=== PATIENT | female | born 1990 | race Caucasian/White ===

== ENCOUNTER 2016-03-28 12:11 | Emergency (ER) | payer OTHER ==
[2016-03-28 12:50] VITALS: BP 111/72
--- NOTE | 2016-03-28 12:51 | UC ---
Elbow Pain - HPI Summary HPI Summary: RIGHT ELBOW PAIN X 4 DAYS HIT HER RIGHT ELBOW TO THE WALL 4 DAYS AGO CONT. TO HAVE PAIN , INCREASE PAIN WITH MOVEMENT OF HER RIGHT ARM AND LIFTING WITH HER RIGHT ARM - History of Current Complaint Chief Complaint: UCUpperExtremity Stated Complaint: RIGHT ELBOW PAIN Time Seen by Provider: 03/28/16 12:40 Hx Obtained From: Patient Hx Last Menstrual Period: 03/19/16 ?: No Mechanism of Injury: HIT THE WALL WITH HER RIGHT ELBOW Onset/Duration: Days - 4, Traumatic, Still Present Severity Initially: Moderate Severity Currently: Moderate Location Of Pain: Is Discrete @ - RIGHT ELBOW Character: Aching Aggravating Factor(s): Movement, Pulling, Twisting Alleviating Factor(s): Rest, Ice Associated Signs And Symptoms: Positive: Weakness. Negative: Swelling, Redness , Bruising, Numbness/Tingling - Allergies/Home Medications Allergies/Adverse Reactions: Allergies Allergy/AdvReac Type Severity Reaction Status Date / Time Amoxicillin Allergy Intermediate Hives Verified 03/28/16 12:41 Nickel Allergy Rash Verified 01/10/16 15:34 PMH/Surg Hx/FS Hx/Imm Hx Endocrine History Of: Denies: Diabetes, Thyroid Disease, Hyperthyroidism, Hypothyroidism, Dyslipidemia Cardiovascular History Of: Denies: Cardiac Disorders, Hypertension, Pacemaker/ICD, Myocardial Infarction , Congestive Heart Failure, Atrial Fibrillation, Deep Vein Thrombosis, Bleeding Disorders Respiratory History Of: Denies: COPD, Asthma, Bronchitis, Pneumonia, Pulmonary Embolism GI/ History Of: Denies: Gastroesophageal Reflux, Ulcer, Gastrointestinal Bleed, Gall Bladder Disease, Kidney Stones, Diverticulitis, Renal Disease, Urosepsis Neurological History Of: Denies: TIA, CVA, Dementia, Seizures, Migraine Psychological History Of: Denies: Anxiety, Depression, Bipolar Disorder, Schizophrenia, Post Traumatic Stress Disorder Cancer History Of: Denies: Lung Cancer, Colorectal Cancer, Breast Cancer, Prostate Cancer, Cervical Cancer Other History Of: Negative For: HIV, Hepatitis B, Hepatitis C, Anticoagulant Therapy - Surgical History Surgical History: None - Family History Known Family History: Positive: Cardiac Disease Negative: Hypertension, Diabetes, Respiratory Disease - Social History Alcohol Use: Occasionally Substance Use Type: None Smoking Status (MU): Heavy Every Day Tobacco Smoker Type: Cigarettes Amount Used/How Often: 1/2 pack day Length of Time of Smoking/Using Tobacco: since age 15 Have You Smoked in the Last Year: Yes Review of Systems Constitutional: Negative Skin: Negative Eyes: Negative ENT: Negative Respiratory: Negative Cardiovascular: Negative Musculoskeletal: Other: - RIGHT ELBOW PAIN Psychological: Negative All Other Systems Reviewed And Are Negative: Yes Physical Exam Triage Information Reviewed: Yes Appearance: Well-Appearing, No Pain Distress, Well-Nourished Vital Signs: Initial Vital Signs Temp 98.1 F 03/28/16 12:35 Pulse 86 03/28/16 12:35 Resp 14 03/28/16 12:35 BP 111/72 03/28/16 12:35 Pulse Ox 99 03/28/16 12:35 Vital Signs Reviewed: Yes Eyes: Positive: Conjunctiva Clear ENT: Positive: Normal ENT inspection, Hearing grossly normal, Pharynx normal Neck: Positive: Supple, Nontender, No Lymphadenopathy Respiratory: Positive: Chest non-tender, Lungs clear, Normal breath sounds Cardiovascular: Positive: RRR, No Murmur, Pulses Normal Abdominal Exam: Normal Musculoskeletal: Positive: Other: - RIGHT ELBOW: NO SWELLING , NO ECCHYMOSIS, NO EFFUSION, + DIFFUSE TENDERNESS, GOOD ROM ON FLEXION, EXTENSION , Skin Exam: Normal Elbow Pain Course/Dx - Differential Dx/Diagnosis Provider Diagnoses: CONTUSION RIGHT ELBOW Discharge - Discharge Plan Condition: Stable Disposition: HOME Patient Education Materials: Contusion in Adults (ED) Forms: *Work Release Referrals: [facility] [Outside] - 7 Days No Primary Care Phys,NOPCP [Primary Care Provider] - 7 Days
--- NOTE | 2016-03-28 13:06 | RAD ---
INDICATION: Elbow injury COMPARISON: None TECHNIQUE: AP, lateral, and oblique views were obtained. FINDINGS: The bony structures, joint spaces, and soft tissues are normal for age. IMPRESSION: NEGATIVE EXAMINATION.
== END 2016-03-28 13:11 | disposition home or self-care (01) ==
LOC: UCCORT 12:11
DX: S50.01XA Contusion of right elbow, initial encounter (principal); W22.09XA Striking against other stationary object, initial encounter; Y93.9 Activity, unspecified; Y92.9 Unspecified place or not applicable; Z88.0 Allergy status to penicillin; F17.210 Nicotine dependence, cigarettes, uncomplicated
CPT/HCPCS: 99211; G0463

== ENCOUNTER 2017-04-22 09:05 | Emergency (ER) | payer OTHER ==
[2017-04-22 10:36] VITALS: BP 113/73
[2017-04-22] MEDS ORDERED: Ketorolac INJ* 30 MG/ML 1 ML VIAL IM ONE (10:45)
--- NOTE | 2017-04-22 10:53 | UC ---
Headache HPI - HPI Summary HPI Summary: 26 yo female with left hemicranial BANDA x 3 days she gets similar HAs about once a month tentative dx of migraines often her BANDA are associated with n/v although this one is not she has photo/phono phobia no hx head injury - History Of Current Complaint Chief Complaint: UCHeadache Stated Complaint: HEADACHE Time Seen by Provider: 04/22/17 10:33 Hx Obtained From: Patient Hx Last Menstrual Period: unknown, takes only active bc pills Onset/Duration: Gradual Onset, Lasting Days Onset Of Symptoms: Gradual Initially Headache Was: Moderate Currently Pain Is: Severe Pain Intensity: 8 Pain Scale Used: 0-10 Numeric Timing: Constant Character: Throbbing, Typical Headache Associated Signs And Symptoms: Positive: Negative - Allergies/Home Medications Allergies/Adverse Reactions: Allergies Allergy/AdvReac Type Severity Reaction Status Date / Time amoxicillin Allergy Hives Verified 04/22/17 10:32 nickel Allergy Rash Verified 04/22/17 10:32 PMH/Surg Hx/FS Hx/Imm Hx Previously Healthy: Yes Other History Of: Negative For: HIV, Hepatitis B, Hepatitis C, Anticoagulant Therapy - Surgical History Surgical History: None - Family History Known Family History: Positive: Cardiac Disease, Hypertension Negative: Diabetes, Respiratory Disease - Social History Alcohol Use: None Substance Use Type: None Smoking Status (MU): Heavy Every Day Tobacco Smoker Type: Cigarettes Amount Used/How Often: 1/2 pack day Length of Time of Smoking/Using Tobacco: since age 15 Have You Smoked in the Last Year: Yes Review of Systems Constitutional: Negative Skin: Negative Eyes: Negative ENT: Negative Respiratory: Negative Cardiovascular: Negative Gastrointestinal: Negative Genitourinary: Negative Motor: Negative Neurovascular: Negative Musculoskeletal: Negative Neurological: Headache Psychological: Negative Is Patient Immunocompromised?: No All Other Systems Reviewed And Are Negative: Yes Physical Exam Triage Information Reviewed: Yes Appearance: Well-Appearing, No Pain Distress, Well-Nourished Vital Signs: Initial Vital Signs Temp 98.2 F 04/22/17 10:29 Pulse 69 04/22/17 10:29 Resp 16 04/22/17 10:29 BP 113/73 04/22/17 10:29 Pulse Ox 100 04/22/17 10:29 Vital Signs Reviewed: Yes Eyes: Positive: Conjunctiva Clear, Other: - eomi/perrl, fundi benign ENT: Positive: Hearing grossly normal, TMs normal, Uvula midline, Other - no TMJ crepitus. Negative: Nasal congestion, Nasal drainage, Tonsillar swelling, Tonsillar exudate, Trismus, Muffled voice, Hoarse voice, Sinus tenderness Neck: Positive: Supple, Nontender, No Lymphadenopathy Respiratory: Positive: Lungs clear, Normal breath sounds, No respiratory distress, No accessory muscle use, Respiratory distress Cardiovascular: Positive: RRR, No Murmur Musculoskeletal: Positive: ROM Intact, No Edema Neurological: Positive: Alert, Other: - cn2-12 intact, strenth and sensory intact, DTRs, normal gait Psychological Exam: Normal Skin Exam: Normal Re-Evaluation - Re-Evaluation First Eval Re-Evaluation Time: 11:16 Change: Improved - markedly improved headache 3- Headache Course/Dx - Differential Dx/Diagnosis Provider Diagnoses: acute headache. suspect migraine Discharge - Discharge Plan Condition: Stable Disposition: HOME Patient Education Materials: Acute Headache (ED) Referrals: No Primary Care Phys,NOPCP [Primary Care Provider] - Additional Instructions: you had a shot of TORADOL here rest see your provider this week for recheck
== END 2017-04-22 11:21 | disposition home or self-care (01) ==
LOC: UCCORT 09:05
DX: R51 Headache (principal); Z88.1 Allergy status to other antibiotic agents; F17.210 Nicotine dependence, cigarettes, uncomplicated
CPT/HCPCS: 96372; 99211; G0463; J1885

== ENCOUNTER 2018-01-10 18:24 | Emergency (ER) | payer OTHER ==
[2018-01-10 19:00] VITALS: BP 104/68
--- NOTE | 2018-01-10 19:47 | UC ---
Respiratory Complaint HPI - HPI Summary HPI Summary: Pt c/o chest and nasal congestion, cough X 1 month. - History of Current Complaint Chief Complaint: UCRespiratory Stated Complaint: CONGESTION/COUGH Time Seen by Provider: 01/10/18 18:59 Hx Obtained From: Patient Hx Last Menstrual Period: HAS NOT HAD PERIOD SINCE STOPING THE BCP IN JULY 2017 ?: No Onset/Duration: Gradual Onset, Lasting Weeks, Still Present Timing: Constant Severity Initially: Mild Severity Currently: Mild Pain Intensity: 6 Pain Scale Used: 0-10 Numeric Character: Cough: Nonproductive Aggravating Factors: Exertion, Deep Breaths, Recumbent Position Associated Signs And Symptoms: Positive: URI, Nasal Congestion - Risk Factors Pulmonary Embolism Risk Factors: Negative Cardiac Risk Factors: Negative Pseudomonas Risk Factors: Negative Tuberculosis Risk Factors: Negative - Allergies/Home Medications Allergies/Adverse Reactions: Allergies Allergy/AdvReac Type Severity Reaction Status Date / Time amoxicillin Allergy Hives Verified 01/10/18 18:52 nickel Allergy Rash Verified 01/10/18 18:52 PMH/Surg Hx/FS Hx/Imm Hx Previously Healthy: Yes Other History Of: Negative For: HIV, Hepatitis B, Hepatitis C, Anticoagulant Therapy - Surgical History Surgical History: None - Family History Known Family History: Positive: Cardiac Disease, Hypertension Negative: Diabetes, Respiratory Disease - Social History Occupation: Employed Full-time Lives: With Family Alcohol Use: None Substance Use Type: None Smoking Status (MU): Heavy Every Day Tobacco Smoker Type: Cigarettes Amount Used/How Often: 1/2 pack day Length of Time of Smoking/Using Tobacco: since age 15 Have You Smoked in the Last Year: Yes Review of Systems All Other Systems Reviewed And Are Negative: Yes Constitutional: Positive: Chills, Fatigue Skin: Positive: Negative Eyes: Positive: Negative ENT: Positive: Sinus Congestion Respiratory: Positive: Cough Cardiovascular: Positive: Negative Gastrointestinal: Positive: Negative Genitourinary: Positive: Negative Motor: Positive: Negative Neurovascular: Positive: Negative Musculoskeletal: Positive: Negative Neurological: Positive: Negative Psychological: Positive: Negative Is Patient Immunocompromised?: No Physical Exam Triage Information Reviewed: Yes Appearance: Well-Appearing Vital Signs: Initial Vital Signs Temp 97.8 F 01/10/18 18:53 Pulse 76 01/10/18 18:53 Resp 16 01/10/18 18:53 BP 104/68 01/10/18 18:53 Pulse Ox 98 01/10/18 18:53 Vital Signs Reviewed: Yes Eye Exam: Normal ENT: Positive: Nasal congestion Dental Exam: Normal Neck exam: Normal Respiratory: Positive: Other: - upper airway congestion Cardiovascular Exam: Normal Musculoskeletal Exam: Normal Neurological Exam: Normal Psychological Exam: Normal Skin Exam: Normal UC Diagnostic Evaluation - Laboratory O2 Sat by Pulse Oximetry: 98 Respiratory Course/Dx - Differential Dx/Diagnosis Differential Diagnosis/HQI/PQRI: Bronchitis, Influenza Provider Diagnoses: bronchitis Discharge - Sign-Out/Discharge Documenting (check all that apply): Patient Departure All imaging exams completed and their final reports reviewed: No Studies - Discharge Plan Condition: Stable Disposition: HOME Prescriptions: Azithromycin TAB* [Zithromax TAB (Z-HARVEY) 250 mg #6 tabs] 2 tab PO .TODAY, THEN 1 DAILY #1 harvey Guaifenesin/Pseudoephedrne HCl [Mucinex D ER 600-60 mg Tablet] 1 each PO Q12H # 14 tab.er.12h predniSONE TAB* [Deltasone 20 MG TAB*] 20 mg PO DAILY #4 tab Patient Education Materials: Acute Bronchitis (ED) Forms: *Work Release Referrals: [facility] [Outside] - If Needed Ita Walter MD [Primary Care Provider] - As Soon As Possible - Billing Disposition and Condition Condition: STABLE Disposition: Home - Attestation Statements Provider Attestation: I was available for consult. This patient was seen by the HARI. The patient was not presented to, seen by, or examined by me. -Matheus
== END 2018-01-10 19:38 | disposition home or self-care (01) ==
LOC: UCCORT 18:24
DX: J40 Bronchitis, not specified as acute or chronic (principal); R09.89 Other specified symptoms and signs involving the circulatory and respiratory systems; F17.210 Nicotine dependence, cigarettes, uncomplicated; Z88.0 Allergy status to penicillin; Z91.048 Other nonmedicinal substance allergy status
CPT/HCPCS: 99212; G0463

== ENCOUNTER 2018-02-14 08:00 | Emergency (ER) | payer OTHER ==
[2018-02-14 08:18] VITALS: BP 106/62
--- NOTE | 2018-02-14 08:37 | UC ---
Lower Extremity/Ankle HPI - HPI Summary HPI Summary: Patient presents to urgent care with 24 hours progressive pain in the base of her second and third toe on the left foot. Patient denies any trauma. Patient states pain at rest but it's exquisite with any type of movement or palpation. Patient states gentle palpation to the tips of her toes also causes pain. Patient has taken Motrin as well as Tylenol with little relief. Patient denies fevers or chills. Patient is not immunocompromised. Patient without any history of similar. Patient is denies any new shoes, new activities. Patient states her feet did not get cold and wet and is not concern for frostbite. Patient states she's never been like this before. 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 Patient has a primary but has not seen her in quite some time so decided to come here. Last analgesia was 4 AM. Patient states medications reviewed this visit. - History of Current Complaint Chief Complaint: UCLowerExtremity Stated Complaint: LT FOOT/TOES PAIN Time Seen by Provider: 02/14/18 08:20 Hx Obtained From: Patient Hx Last Menstrual Period: unknown Severity Initially: Moderate Severity Currently: Moderate Pain Intensity: 7 Pain Scale Used: 0-10 Numeric Aggravating Factor(s): Ambulation Alleviating Factor(s): Rest Able to Bear Weight: Yes - with limp - Allergies/Home Medications Allergies/Adverse Reactions: Allergies Allergy/AdvReac Type Severity Reaction Status Date / Time amoxicillin Allergy Hives Verified 02/14/18 08:14 nickel Allergy Rash Verified 02/14/18 08:14 Home Medications: Home Medications Acetaminophen [Acetaminophen Extra Strength] 500 mg PO Q4H PRN 02/14/18 [ History Confirmed 02/14/18] Ibuprofen TAB* [Advil TAB*] 800 mg PO Q6H PRN 02/14/18 [History Confirmed ] PMH/Surg Hx/FS Hx/Imm Hx Previously Healthy: Yes Other History Of: Negative For: HIV, Hepatitis B, Hepatitis C, Anticoagulant Therapy - Surgical History Surgical History: None - Family History Known Family History: Positive: Cardiac Disease, Hypertension Negative: Diabetes, Respiratory Disease - Social History Occupation: Employed Full-time Alcohol Use: None Substance Use Type: None Smoking Status (MU): Heavy Every Day Tobacco Smoker Type: Cigarettes Amount Used/How Often: 1/2 pack day Length of Time of Smoking/Using Tobacco: since age 15 Have You Smoked in the Last Year: Yes Review of Systems All Other Systems Reviewed And Are Negative: Yes Constitutional: Positive: Negative Skin: Positive: Other - no wounds, no erythema. Negative: Bruising Musculoskeletal: Positive: Other: - left toes Physical Exam - Summary Physical Exam Summary: Vital Signs Reviewed: Yes A+Ox3, no distress Eyes: Conjunctiva Clear ENT: Hearing grossly normal neck: supple Respiratory: Positive: No respiratory distress, No accessory muscle use Cardiovascular: skin color reflect adequate perfusion Musculoskeletal Exam: + SLE + flex/ext knee, ankle no pain tarsals + TTP base 2nd, 3rd toes at MTP no crepitus no edema Pain increases with movement. + TTP gentle palpation of both toes - no crepitus, no deformity, no erythema, no edema , no warmth. Neurological: Positive: Alert, ambulatory without difficulty + gross sensation Psychological: Positive: Normal Response To Family Skin: Positive: no rash, no ecchymosis, no erythema, no warmth Triage Information Reviewed: Yes Vital Signs: Initial Vital Signs Temp 98.1 F 02/14/18 08:15 Pulse 80 02/14/18 08:15 Resp 16 02/14/18 08:15 BP 106/62 02/14/18 08:15 Pulse Ox 100 02/14/18 08:15 Diagnostics - Radiology No standard instances Radiology Interpretation Completed By: Radiologist - Patient Name: EFREN CASANOVA Medical Record#: [id number] Ordering Physician: Yaa Knox MD Acct.#: [id number] : 1990 Age: 27 Sex: F Location: [facility] Exam Date: 02/14/18830 ADM Status: REG ER Order Information: FOOT LEFT 2 VWS Accession Number: [id number] CPT: 94722 HISTORY: pain base 2nd/3rd toes unknown trauma COMPARISONS: None VIEWS: 2 , Frontal and lateral views of the left foot FINDINGS: BONE DENSITY: Normal. BONES: There is no displaced fracture. JOINTS: There is no arthropathy. ALIGNMENT: There is no dislocation. SOFT TISSUES: Unremarkable. OTHER FINDINGS: None. IMPRESSION: NO ACUTE OSSEOUS INJURY. IF SYMPTOMS PERSIST, RECOMMEND REPEAT IMAGING. <Electronically signed by Javier Armendariz MD in [place]> 02/14/18852 Dictated By: Javier Armendariz MD Dictated Date/Time: 02/14 Transcribed Date/Time: 02/14/18852 Copy to: CC:MARCELL Pettit ; Yaa Knox MD; No Primary Care Phys,NOPCP Imaging - [facility] Imaging - [facility] Imaging - [facility] [address] [facility] [address] ph ([phone]) ph ([phone]) ph ([phone]) This report is only to be considered final once signed by the Provider(s) as displayed in the "<Electronically Signed by >" field (s). Absence of a signature indicates the report is in a draft status and still needs to be finalized. In the event this document was created by someone other than the signing Provider, the individual initiating the document will be listed in the "Entered by:" or "Dictated by:" more. 1 of 1 Lower Extremity Course/Dx - Course Course Of Treatment: Patient presents to urgent care reporting progressive pain in her left foot at the base of her second and third toes. Patient denies trauma. Patient is worse with palpation walking and putting on her shoe. Patient without any erythema, edema, or swelling. Patient states she's taken Motrin Tylenol with little improvement. On exam patient with tenderness across days to toes at the end as well as MTP. No other clinical signs consistent with gout. We'll check imaging. We'll check a CBC chemistry neck acid. Encourage patient to follow up with sports medicine. Patient given a hard soled shoe and crutches which she sits provided good support. Reviewed Motrin Tylenol. Ice. Elevate. Return precautions. Patient also given contact information patient for primary care provider support. d/w pt diagnostic uncertainly at today's exam - differential includes gout, tendonitis, contusion Patient comfortable in agreement. Strict return precautions. work note - Differential Dx/Diagnosis Provider Diagnosis: Left foot pain Discharge - Sign-Out/Discharge Documenting (check all that apply): Patient Departure All imaging exams completed and their final reports reviewed: Yes - Discharge Plan Condition: Stable Disposition: HOME Patient Education Materials: Arthralgia (ED) Forms: *Work Release Referrals: No Primary Care Phys,NOPCP [Primary Care Provider] - [facility] [Provider Group] [facility] [Provider Group] Additional Instructions: As discussed with you at your visit today, the doctor that evaluated you is not certain the cause of your pain. Your x-ray does not show any abnormalities. You have blood work drawn today that will be available later this afternoon for review. The followig is recommended: - use crutches and he can walk normally without limp - wear the shoe with a stiff support like the one given to at today's visit - Elevate your leg to help with any discomfort related to swelling. - Okay to alternate ibuprofen (Advil, Motrin) 600mg and Tylenol every 3 hours for pain or fever. Take with food. Do NOT take for more than 4-5 days. - Contact the sports medicine group to schedule a follow-up appointment. You may request evaluation in the [facility] - they have office hours on s - Billing Disposition and Condition Condition: STABLE Disposition: Home
[2018-02-14 10:22] LABS: ABS Basophils 0 10^3/ul (0-0.2); ABS Eosinophils 0.1 10^3/ul (0-0.6); ABS Lymphocytes 2.4 10^3/ul (1.0-4.8); ABS Monocytes 0.5 10^3/ul (0-0.8); ABS Neutrophils 3.1 10^3/ul (1.5-7.7); ABS Nucleated RBC 0 10^3/ul; Eosinophil % 1.9 %; Hematocrit 40 % (35-47); Lymphocyte % 39.1 %; Mean Corpuscular HGB Conc 35 g/dl (31-36); Mean Corpuscular Hemoglobin 31 pg (27-31); Mean Corpuscular Volume 89 fL (80-97); Mean Platelet Volume 8.9 fL (7.4-10.4); Nucleated Red Blood Cells % 0.1; Platelet Count 233 10^3/ul (150-450); Red Blood Count 4.51 10^6/ul (4.00-5.40); Red Cell Distribution Width 13 % (10.5-15); White Blood Count 6.2 10^3/ul (3.5-10.8)
[2018-02-14 10:39] LABS: EGFR Non-African American 116.8 (>60); Uric Acid 3.6 mg/dL (2.3-6.6)
== END 2018-02-14 09:10 | disposition home or self-care (01) ==
LOC: UCCORT 08:00
DX: M79.672 Pain in left foot (principal); Z88.0 Allergy status to penicillin; F17.210 Nicotine dependence, cigarettes, uncomplicated
CPT/HCPCS: 36415; 80048; 84550; 85025; 99212; G0463

== ENCOUNTER 2018-07-30 15:59 | Emergency (ER) | payer OTHER ==
[2018-07-30 16:28] VITALS: BP 109/68
[2018-07-30] MEDS ORDERED: Fluorescein Sodium TOPICAL* 1 MG TEST STRIP OPHTHALMIC ONE (16:52)
[2018-07-30] MEDS ORDERED: Tetracaine 0.5% OPTH.SOL 4 ML* 1 DROP BTL LEFT EYE ONE (16:53)
--- NOTE | 2018-07-30 17:09 | ED ---
Throat Pain/Nasal Congestion - HPI Summary HPI Summary: 27 yr old female with the complaint of left eye pain. Onset of pain was this morning when her dog hit her left eye with paw and nail. No contact lense use. Her pain is worse with open and close eye, and pain is burning. Moderate in intensity. 10/12. - History of Current Complaint Chief Complaint: UCEye Time Seen by Provider: 07/30/18 16:45 - Allergies/Home Medications Allergies/Adverse Reactions: Allergies Allergy/AdvReac Type Severity Reaction Status Date / Time amoxicillin Allergy Hives Verified 07/30/18 16:28 nickel Allergy Rash Verified 07/30/18 16:28 PMH/Surg Hx/FS Hx/Imm Hx Endocrine/Hematology History: Denies: Hx Anticoagulant Therapy, Hx Diabetes, Hx Thyroid Disease Cardiovascular History: Denies: Hx Congestive Heart Failure, Hx Deep Vein Thrombosis, Hx Hypertension , Hx Myocardial Infarction, Hx Pacemaker/ICD Respiratory History: Denies: Hx Asthma, Hx Chronic Obstructive Pulmonary Disease (COPD), Hx Lung Cancer, Hx Pneumonia, Hx Pulmonary Embolism GI History: Denies: Hx Gall Bladder Disease, Hx Gastrointestinal Bleed, Hx Ulcer, Hx Urosepsis History: Denies: Hx Kidney Stones, Hx Renal Disease Neurological History: Denies: Hx Dementia, Hx Migraine, Hx Seizures, Hx Transient Ischemic Attacks (TIA) Psychiatric History: Denies: Hx Anxiety, Hx Depression, Hx Schizophrenia, Hx Bipolar Disorder Infectious Disease History: No Infectious Disease History: Denies: Hx Hepatitis, Hx Human Immunodeficiency Virus (HIV), Traveled Outside the [place] in Last 30 Days - Family History Known Family History: Positive: Cardiac Disease, Hypertension Negative: Diabetes, Respiratory Disease - Social History Alcohol Use: None Substance Use Type: Reports: None Smoking Status (MU): Heavy Every Day Tobacco Smoker Type: Cigarettes Amount Used/How Often: 1/2 pack day Length of Time of Smoking/Using Tobacco: since age 15 Have You Smoked in the Last Year: Yes Review of Systems Constitutional: Negative Positive: Other - left eye pain All Other Systems Reviewed And Are Negative: Yes Physical Exam Triage Information Reviewed: Yes Vital Signs On Initial Exam: Initial Vitals Temp Pulse Resp BP Pulse Ox 98.3 F 72 16 109/68 100 07/30/18 16:25 07/30/18 16:25 07/30/18 16:25 07/30/18 16:25 07/30/18 16:25 Vital Signs Reviewed: Yes Appearance: Positive: Well-Appearing, No Pain Distress Skin: Positive: Warm, Skin Color Reflects Adequate Perfusion Head/Face: Positive: Normal Head/Face Inspection Eyes: Positive: EOMI, KAIT, Other: - left eye with erythema conjunctiva, and under wood lamp exam no uptake seen. Slit lamp not available. ENT: Positive: Normal ENT inspection Neck: Positive: Nontender Respiratory/Lung Sounds: Positive: Clear to Auscultation Cardiovascular: Positive: RRR Abdomen Description: Negative: Distended Musculoskeletal: Positive: Strength/ROM Intact Neurological: Positive: Sensory/Motor Intact, Alert, Oriented to Person Place, Time, CN Intact II-III, Normal Gait, Speech Normal Psychiatric: Positive: Normal Diagnostics - Vital Signs Vital Signs Temp Pulse Resp BP Pulse Ox 07/30/18 16:25 98.3 F 72 16 109/68 100 - Laboratory Lab Statement: Any lab studies that have been ordered have been reviewed, and results considered in the medical decision making process. EENT Course/Dx - Course Course Of Treatment: 27 yr old with blunt trauma to left eye. She has pain. Visual acuity 20/30 each and together. She will go to the hospital ER for further eval of her eye injury. - Diagnoses Provider Diagnoses: Blunt trauma, left eye, Pain in left eye Discharge - Sign-Out/Discharge Documenting (check all that apply): Patient Departure All imaging exams completed and their final reports reviewed: No Studies - Discharge Plan Condition: Good Disposition: HOME-RECOMMEND TO ED Patient Education Materials: Eye Pain (ED) Referrals: No Primary Care Phys,NOPCP [Primary Care Provider] - [facility] [place] [facility] [place]Outside] Additional Instructions: You need to go to the ER for further evaluation of your eye pain after getting hit by dog claw. Do not delay. You have stated that you have someone driving you. - Billing Disposition and Condition Condition: GOOD Disposition: Home-Recommend to ED
== END 2018-07-30 17:09 | disposition home health service (06) ==
LOC: UCCORT 15:59
DX: S05.92XA Unspecified injury of left eye and orbit, initial encounter (principal); F17.210 Nicotine dependence, cigarettes, uncomplicated; W54.1XXA Struck by dog, initial encounter
CPT/HCPCS: 99212; A9270-GY; G0463